=== PATIENT | female | born 1955 | race Caucasian/White ===

== ENCOUNTER 2016-10-08 20:19 | Emergency (ER) | payer OTHER ==
[2016-10-08 20:20] VITALS: BMI 23.6
[2016-10-08 20:29] VITALS: TEMP 98
[2016-10-08] MEDS ORDERED: PREDNISONE 20 MG TAB PO ONE (20:52)
[2016-10-08] MEDS ORDERED: DIAZEPAM 5 MG TAB PO ONE (20:52)
[2016-10-08] MEDS ORDERED: OXYCODONE HCL 5 MG TABLET PO ONE (20:52)
--- NOTE | 2016-10-08 21:17 | EDPRACDOC ---
- General Information Chief Complaint: Neck Pain Stated Complaint: FELT A POP IN SPINE LAST PM/NECK PAIN Time Seen by Provider: 10/08/16 20:43 Information Source: Patient Mode Of Arrival: Car Home Medications: Home Medications Albuterol Sulfate [Proair Hfa] 1 - 2 puff INH Q4H PRN 06/13/14 Baclofen 20 mg PO TID 06/13/14 Clonazepam 1 mg PO TID 06/13/14 Fluticasone Propionate [Flonase] 2 spray NS BID 06/13/14 Ibuprofen 200 mg PO Q6 PRN 06/13/14 Levothyroxine [Synthroid, Levoxyl] 50 mcg PO DAILY 06/13/14 Omeprazole 20 mg PO DAILY 06/13/14 Pregabalin [Lyrica] 100 mg PO TID 06/13/14 Sertraline HCl 200 mg PO DAILY 06/13/14 Trazodone HCl 200 mg PO QHS 06/13/14 Aspirin 81 mg PO DAILY #30 tab.chew 06/22/14 Atorvastatin [Lipitor 40 mg Tablet] 40 mg PO HS 09/20/14 Diazepam [Valium] 5 mg PO TID #15 tablet 10/08/16 Oxycodone Immediate Release [Oxycodone Immediate Release (OxyIR)] 5 mg PO Q6H PRN #14 tab 10/08/16 Prednisone [Deltasone, Orasone] 20 mg PO BID #12 tab 10/08/16 Allergies/Adverse Reactions: Allergies Allergy/AdvReac Type Severity Reaction Status Date / Time scopolamine Allergy Severe Confusion Verified 10/08/16 20:29 codeine Allergy Hives* Verified 10/08/16 20:29 - History of Present Illness Onset: 1 DAY HPI: PT PRESENTS WITH THORACIC BACK PAIN THAT BEGAN LAST NIGHT WITH SHE WAS ATTEMPTING TO LIFT A HEAVY OBJECT WITH HER LEFT ARM. SHE STATES SHE FELT A POP IN THE BACK AND HAS CONTINUED TO HAVE PAIN IN HER LEFT ARM. PT STATES IT WORSENS WITH MOVEMENT AND IS BETTER WITH REST. DENIES NAUSEA, VOMITING, CHILLS OR FEVER. 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 Denies: Atrial Fibrillation, Stress Test, Internal Defibrillator Respiratory History: Reports: Asthma (OCCASIONAL USE OF PROAIR). Denies: Bronchitis, Asbestosis, Aspiration Pneumonia GI/ History: Denies: Renal Disease, Renal Failure, Renal (Kidney) Cancer, Kidney (Renal Surgery), Urinary Tract Infection, Kidney Stones, Liver Failure, Gastroesophageal Reflux, IBD Musculoskeletal History: Reports: Arthritis Psychological History: Denies: Depression, Schizophrenia Systemic History: Reports: Cancer (BILATERAL BREAST CANCER S/P DOUBLE MASTECTOMY - CURE), Hypothyroidism Additional Past Medical History: CERVICAL FUSION, RODS IN LUMBAR SPINE Surgical History: Reports: Hysterectomy, Tonsillectomy/Adnoidectomy Date of Last Radiation Treatment: 2004 Date of Last Chemotherapy Date: 2004 - Family Medical History Reports: Hypertension (PARENTS), Cancer (FATHER LUNG CA). Denies: Diabetes, Stroke, Cardiac Disorders - Social Medical History Smoking Status: Never smoker EDM Review of Systems - Review of Systems ROS Negative Except as Marked: Yes All systems reviewed and were negative except as marked - Physical Exam Constitutional: Alert Oriented to: Time, Person, Place Last recorded Vital Signs: Last Vital Signs Temp 98 F 10/08/16 20:23 Pulse 68 10/08/16 20:23 Resp 20 10/08/16 20:23 BP 121/67 10/08/16 20:23 Pulse Ox 97 10/08/16 20:23 Oxygen Pulse Oxygen Saturation 97 O2 Device Room Air Oxygen Flow Rate Fraction of Inspired Oxygen ( FIO2) - HEENT Head: Normal ( normocephalic) Eye Exam: Normal (PERRL, EOMI, Sclera white) Oropharynx: Normal (Pharynx:Moist without exudate,Gums-no swelling) Nose: No Symptoms Reported (septum midline) Neck: Normal (FROM, trachea at midline) - Respiratory/Cardiovascular Respiratory: Normal - CTA (BBS clear to auscultation without adventitious sounds ) Cardiovascular: Normal (RRR without murmur, gallop or rub) - GI Auscultation: Normal (NABS) Palpation: Normal (Soft,No rebound or guarding, non distended) Tenderness: Non tender [place]'s Sign: Negative Rectal Exam: Deferred - Musculoskeletal Back: Normal (Non-Tender) Extremities: Normal (Normal tone, Pulses 2+ No cyanosis or edema, FROM) - Integumentary Skin: Normal, Warm, Dry Lymphatics: Normal (no adenopathy) - Neurologic Memory Impaired: Normal Motor Function: Normal (Normal tone, Pulses 2+ No cyanosis or edema, FROM) Cranial Nerve: Normal (CN II-X11 intact sensation, strength 5/5) Cerebellar: Normal Mood Description: Normal Perception: Normal ED Back Exam - Neurologic Motor Deficit: None Reflexes: Normal - Musculoskeletal Cervical: Normal Thoracic: Tender Lumbar: Normal Midline: Normal Paraspinous: Normal Straight Leg Raise: Negative Pelvis: Normal - Differential Diagnosis Musculoskeletal pain Decision Time to Discharge: 22:07 - Departure Disposition: Home Condition: Stable Final Diagnosis: Thoracic back pain Qualifiers: Chronicity: acute Back pain laterality: midline Qualified Code(s): M54.6 - Pain in thoracic spine Instructions: Back Pain (ED), Core Strengthening Exercises (GEN) Education/Counseling Given To: Patient Education/Counseling Given Regarding: Diagnosis, Treatment, Prognosis, Follow Up Referrals: Angel Luis Jean MD [Primary Care Provider] - One Week Cedrick Pang MD [Staff Physician] - One Week Prescriptions: New Diazepam [Valium] 5 mg PO TID #15 tablet Prednisone [Deltasone, Orasone] 20 mg PO BID #12 tab Continue Oxycodone Immediate Release [Oxycodone Immediate Release (OxyIR)] 5 mg PO Q6H PRN #14 tab PRN Reason: Pain No Action Albuterol Sulfate [Proair Hfa] 1 - 2 puff INH Q4H PRN PRN Reason: Shortness Of Breath Levothyroxine [Synthroid, Levoxyl] 50 mcg PO DAILY Ibuprofen 200 mg PO Q6 PRN PRN Reason: Pain Clonazepam 1 mg PO TID Pregabalin [Lyrica] 100 mg PO TID Sertraline HCl 200 mg PO DAILY Omeprazole 20 mg PO DAILY Baclofen 20 mg PO TID Trazodone HCl 200 mg PO QHS Fluticasone Propionate [Flonase] 2 spray NS BID Aspirin 81 mg PO DAILY #30 tab.chew Atorvastatin [Lipitor 40 mg Tablet] 40 mg PO HS Additional Instructions: ICE OR HEAT TO THE AFFECTED AREA. FOLLOW UP WITH ORTHOPEDIC NEXT WEEK. FOLLOW UP WITH PCP NEXT WEEK. RETURN TO THE ED FOR WORSENING SYMPTOMS OR CONCERNS
--- NOTE | 2016-10-08 21:40 | DIRPT ---
CLINICAL DATA: Midthoracic back pain, onset last night while attempting to lift a heavy object. [place] a pop. EXAM: THORACIC SPINE 2 VIEWS COMPARISON: None. FINDINGS: The alignment is maintained. Vertebral body heights are maintained. Minimal diffuse significant disc space narrowing and endplate spurring in the lower thoracic spine. Posterior elements appear intact. There is no paravertebral soft tissue abnormality. Anterior fusion hardware in the lower cervical spine, partially included. IMPRESSION: No acute bony abnormality of the thoracic spine. Electronically Signed By: Lucy Aguero M.D. On: 10/08/2016 21:37
[2016-10-08] MEDS ORDERED: MORPHINE 4 MG/ML INJECTION IM ONE (21:50)
[2016-10-08 22:25] VITALS: BP 120/59; PULSE 54
== END 2016-10-08 22:23 | disposition home or self-care (01) ==
LOC: ED 20:19
DX: M54.6 Pain in thoracic spine (principal)
CPT/HCPCS: 72070; 96372; 99283; A9270; J2270; J3490